=== PATIENT | female | born 1935 | race African-American/Black ===

== ENCOUNTER 2024-01-15 22:47 | Observation (INO) | payer OTHER ==
[~2024-01-15] VITALS: Ht 165.1 cm; Wt 87.6 kg
[2024-01-15 22:54] VITALS: BP_SYST 145; PULSE 94; RESP 20; TEMP 98.3; O2SAT 97
[2024-01-16 01:00] LABS: BASOPHILS # (AUTO) 0.1 K/uL (0.0-0.2); BASOPHILS % (AUTO) 0.6 % (0.0-2.0); EOSINOPHILS # (AUTO) 0.1 K/uL (0.0-0.4); EOSINOPHILS % (AUTO) 1.3 % (0.0-4.0); HEMOGLOBIN 13.6 g/dL (12.0-16.0); LYMPHOCYTES # (AUTO) 1.7 K/uL (1.0-5.5); LYMPHOCYTES % (AUTO) 15.6 % (20.5-51.5); MEAN CORPUSCULAR HEMOGLOBIN 29 pg (27-31); MEAN CORPUSCULAR HGB CONC 33 % (32-36); MEAN CORPUSCULAR VOLUME 87 fL (79.0-98.0); MONOCYTES # (AUTO) 1.1 K/uL (0.0-1.0); MONOCYTES % (AUTO) 10.3 % (1.7-9.3); NEUTROPHILS % (AUTO) 72.2 % (40.0-70.0); PLATELET COUNT (AUTO) 341 K/uL (130-430); RED BLOOD CELL COUNT(AUTO) 4.69 MIL/uL (4.2-6.2); RED CELL DISTRIBUTION WIDTH 14.7 % (9.0-15.0)
[2024-01-16 01:19] LABS: ALANINE AMINOTRANSFERASE 19 U/L (12-78); ALBUMIN 3.6 g/dL (3.4-4.8); ANION GAP 10 (5-15); ASPARTATE AMINOTRANSFERASE 16 U/L (10-37); CALCIUM 8.4 mg/dL (8.4-11.0); CARBON DIOXIDE 28 mmol/L (23-29); CHLORIDE 105 mmol/L (98-107); CREATININE 0.88 mg/dL (0.55-1.30); GLUCOSE 99 mg/dL (74-106); POTASSIUM 3.6 mmol/L (3.5-5.1); SODIUM SERUM 143 mmol/L (136-145); TOTAL BILIRUBIN 0.2 mg/dL (0.0-1.0); TOTAL PROTEIN, SERUM 7.8 g/dL (6.4-8.3); UREA NITROGEN, BLOOD 17 mg/dL (8-21)
[2024-01-16] MEDS: ASPIRIN 81 MG TAB.CHEW PO ONE (04:23)
[2024-01-16] MEDS: FAMOTIDINE 20 MG TABLET PO ONE (04:24)
[2024-01-16] MEDS: MAG-AL HYDROX/SIMETH 30 ML UDC PO ONE (04:24)
[2024-01-16] MEDS ORDERED: MORPHINE 2 MG/ML INJ. SYRINGE IVP PRN (04:45)
[2024-01-16] MEDS ORDERED: NITROGLYCERIN 0.4 MG TAB.SUBL SL PRN (04:45)
[2024-01-16 06:42] VITALS: BP_SYST 157; PULSE 70; RESP 18; TEMP 98.1; O2SAT 96
[2024-01-16 06:45] VITALS: BP_SYST 157; PULSE 70; RESP 18; TEMP 98.1
[2024-01-16 07:48] VITALS: BP_SYST 148; PULSE 65; RESP 20; TEMP 96.8; O2SAT 96
[2024-01-16] MEDS: ASPIRIN 81 MG TAB.CHEW PO SCH (09:04)
[2024-01-16] MEDS ORDERED: lisinopriL 20 MG TABLET PO ONE (10:00)
[2024-01-16 11:17] VITALS: BP_SYST 142; PULSE 67; RESP 16; TEMP 98.2; O2SAT 94
[2024-01-16 12:16] VITALS: BP_SYST 148; PULSE 65; RESP 20; TEMP 96.8; O2SAT 96
[2024-01-16] MEDS ORDERED: VITA1CAP PO (12:46)
[2024-01-16] MEDS ORDERED: LISI20TA30 PO (12:46)
[2024-01-16 12:51] VITALS: BP_SYST 142; PULSE 67; RESP 16; TEMP 98.2; O2SAT 94
[2024-01-17] MEDS ORDERED: lisinopriL 20 MG TABLET PO SCH (09:00)
== END 2024-01-16 13:35 | disposition home or self-care (01) ==
LOC: SED 22:47 → STU 01-16 04:57
PROVIDERS: ADMIT Family Medicine; ATTEND Family Medicine
DX: R07.89 Other chest pain (principal); I10 Essential (primary) hypertension; G62.9 Polyneuropathy, unspecified; I44.7 Left bundle-branch block, unspecified; E78.5 Hyperlipidemia, unspecified; G89.29 Other chronic pain; M54.50 Low back pain, unspecified; Z79.899 Other long term (current) drug therapy
CPT/HCPCS: 99285; 80053; 85025; 84484; 36415; 93005; 71110; 71045; G0378